=== PATIENT | female | born 2005 | race Caucasian/White ===

== ENCOUNTER 2024-02-18 10:10 | Outpatient (REF) | payer OTHER, SELFPAY ==
--- NOTE | ~2024-02-18 | US_ITS ---
EXAMINATION: US RETROPERITONEAL COMPLETE (RENAL) CLINICAL INFORMATION: Dysuria. COMPARISON: None available. TECHNIQUE: Real-time imaging of the kidneys and bladder. FINDINGS: RIGHT KIDNEY: 10.0 x 4.4 x 5.8 cm (SAG x AP x TRV). The kidney is normal in size, contour, and echogenicity. Renal cortical thickness is normal. No calculi or focal parenchymal lesions. There is an extrarenal pelvis, without jose raul hydronephrosis. LEFT KIDNEY: 10.7 x 5.0 x 4.5 cm (SAG x AP x TRV). The kidney is normal in size, contour, and echogenicity. Renal cortical thickness is normal. No calculi or focal parenchymal lesions. No hydronephrosis. BLADDER: Well distended and normal. Bilateral ureteral jets are demonstrated. Prevoid bladder volume is 536 mL. Postvoid bladder volume is 7 mL. US/US retroperitoneal comp IMPRESSION: Unremarkable examination.
== END 2024-02-18 10:11 | disposition home or self-care (01) ==
LOC: HO.UMASIMG 10:10
PROVIDERS: Visit Provider Family Medicine
DX: R30.0 Dysuria (principal)
CPT/HCPCS: 76770